=== PATIENT | male | born 1990 | race Caucasian/White ===

== ENCOUNTER 2022-07-02 08:56 | Emergency (ER) | payer MEDICAID, SELFPAY ==
[2022-07-02 09:38] VITALS: BP 144/95; PULSE 57; RESP 18; TEMP 36.9; O2SAT 98; BMI 36.9
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
--- NOTE | 2022-07-02 11:01 | PC.NURSE ---
PT EVALUATED BY LINDA SMITH. PAPERWORK REVIEWED WITH PATIENT BY LINDA. PLAN IS FOR [facility]
== END 2022-07-02 11:02 | disposition home or self-care (01) ==
PROVIDERS: Emergency Provider Emergency Medicine
DX: S39.012A Strain of muscle, fascia and tendon of lower back, initial encounter (principal); S16.1XXA Strain of muscle, fascia and tendon at neck level, initial encounter; V44.5XXA Car driver injured in collision with heavy transport vehicle or bus in traffic accident, initial encounter; M25.562 Pain in left knee; Y93.89 Activity, other specified; Y92.414 Local residential or business street as the place of occurrence of the external cause; Y99.9 Unspecified external cause status
CPT/HCPCS: 99282; 99283